=== PATIENT | female | born 1965 | race Caucasian/White ===

== ENCOUNTER 2021-02-02 11:37 | Inpatient (IN) | payer MEDICAID, OTHER ==
[~2021-02-02] VITALS: Ht 165.1 cm; Wt 47.2 kg
[2021-02-02] MEDS ORDERED: MORPHINE SULFATE 4 MG/ML CPJ (NOT FOR IM USE) IV NR ×2 (13:00→19:45)
[2021-02-02] MEDS ORDERED: SODIUM CHLORIDE 0.9% 1000ML BAG (SEPSIS BOLUS) IV ONE (13:15)
[2021-02-02] MEDS ORDERED: VANCOMYCIN 1 G PREMIX 200 ML IV ONE (13:15)
[2021-02-02] MEDS ORDERED: PIPERACILLIN/TAZ 3.375G PREMIX 50 ML IV ONE (13:15)
[2021-02-02 13:44] LABS: CHLORIDE 102 mEq/L (98-107)
[2021-02-02 13:51] LABS: HEMATOCRIT. 27.6 % (36.0-48.0); HEMOGLOBIN. 9.3 g/dL (12.0-16.0); MEAN CORPUSCULAR HEMOGLOBIN 29.5 pg (28.0-32.0); MEAN CORPUSCULAR VOLUME 87.7 fL (81.0-99.0); RED BLOOD CELL COUNT 3.15 mill/uL (4.2-5.4); RED CELL DISTRIBUTION WIDTH 15.7 % (11.6-14.6)
[2021-02-02 14:19] LABS: PLATELET ESTIMATE NORMAL
[2021-02-02] MEDS ORDERED: HYDROMORPHONE HCL/PF 2MG/ML CPJ IV ONE (15:00)
[2021-02-02] MEDS ORDERED: ONDANSETRON HCL 4MG/2ML INJ IV ONE (17:00)
[2021-02-02 17:37] LABS: CLARITY URINE CLEAR (CLEAR); COLOR URINE YELLOW (YELLOW); KETONES URINE NEGATIVE (NEGATIVE); LEUKOCYTE ESTERASE URINE NEGATIVE (NEGATIVE); NITRITE URINE POSITIVE (NEGATIVE); OCCULT BLOOD URINE 1+ (NEGATIVE); PH URINE 6.5 (4.5-8.0); PROTEIN URINE NEGATIVE (NEGATIVE); SPECIFIC GRAVITY URINE 1.041 (1.005-1.030); UROBILINOGEN URINE 0.2 E.U./dL (0.2-1.0)
[2021-02-02] MEDS ORDERED: DIPHENHYDRAMINE 50MG/ML VIAL IV SCH (20:00)
[2021-02-02 20:44] VITALS: BP 151/102
[2021-02-02 21:00] VITALS: BP 151/102
[2021-02-02] MEDS: ACETAMINOPHEN 325MG TABLET PO PRN (21:16)
[2021-02-02] MEDS: ONDANSETRON HCL 4MG/2ML INJ IV PRN (21:17)
[2021-02-02] MEDS: HYDROMORPHONE HCL/PF 2MG/ML CPJ IV PRN (21:35)
[2021-02-02] MEDS: ENOXAPARIN 30MG/0.3ML SYR SUBCUT SCH (21:59)
[2021-02-02 22:00] VITALS: BP 151/100
[2021-02-02] MEDS ORDERED: PIPERACILLIN/TAZOBACTAM 3.375 G/VIAL IV SCH (22:00)
[2021-02-02] MEDS ORDERED: IOHEXOL-350 100 ML BOTTLE ONE (22:13)
[2021-02-02] MEDS ORDERED: IOHEXOL-300 100 ML BOTTLE ONE (22:14)
[2021-02-02] MEDS ORDERED: VANCOMYCIN 1,500 MG in DEXT 5% WATER 250 ML IV NR (22:30)
[2021-02-02] MEDS: PIPERACILLIN/TAZOBACTAM 3.375G in DEXT 5% WATER 50ML IV SCH (23:17)
[2021-02-02] MEDS ORDERED: ONDA4TAB5 PO (23:52)
[2021-02-03] VITALS (14 sets, daily range): BP systolic 99–138; BP diastolic 67–89
[2021-02-03] MEDS: HYDROMORPHONE HCL/PF 2MG/ML CPJ IV PRN ×6 (01:46→22:10)
[2021-02-03] MEDS: MVI, ADULT NO.1 10 ML, FOLIC ACID 1 MG, THIAMINE HCL 100 MG in SODIUM CHLORIDE 0.9% 1,0... IV SCH (04:42)
[2021-02-03] MEDS: PIPERACILLIN/TAZOBACTAM 3.375G in DEXT 5% WATER 50ML IV SCH ×3 (05:18→19:49)
[2021-02-03] MEDS: ONDANSETRON HCL 4MG/2ML INJ IV PRN ×4 (05:57→22:09)
[2021-02-03] MEDS ORDERED: VANCOMYCIN 1 G PREMIX 200 ML IV SCH (06:30)
[2021-02-03 07:28] LABS: BASOPHILS % 0.3 % (0.0-2.0); CHLORIDE 100 mEq/L (98-107); EOSINOPHILS % 0.1 % (0.0-5.0); HEMATOCRIT. 22.7 % (36.0-48.0); HEMOGLOBIN. 7.6 g/dL (12.0-16.0); LYMPHOCYTES % 12.3 % (20.0-50.0); MEAN CORPUSCULAR HEMOGLOBIN 29.3 pg (28.0-32.0); MEAN CORPUSCULAR VOLUME 87.7 fL (81.0-99.0); MONOCYTES % 5.1 % (2.0-8.0); NEUTROPHILS % 82.2 % (40.0-76.0); PLATELET 182 x1000/uL (130-400); RED BLOOD CELL COUNT 2.59 mill/uL (4.2-5.4); RED CELL DISTRIBUTION WIDTH 15.7 % (11.6-14.6)
[2021-02-03] MEDS: ACETAMINOPHEN 325MG TABLET PO PRN ×2 (08:23→17:09)
[2021-02-03] MEDS: ENOXAPARIN 30MG/0.3ML SYR SUBCUT SCH (08:24)
[2021-02-03] MEDS: FAMOTIDINE 20MG/2ML VIAL IV SCH ×2 (08:24→17:10)
[2021-02-03] MEDS ORDERED: ENOXAPARIN 40MG/0.4ML SYR SUBCUT SCH (09:00)
[2021-02-03] MEDS: METOCLOPRAMIDE HCL 10MG/2ML VIAL IV SCH ×3 (12:55→23:57)
[2021-02-03 16:26] LABS: TOTAL IRON BINDING CAPACITY 208 ug/dL (250-450)
[2021-02-03] MEDS: GUAIFENESIN 600MG ER TABLET PO PRN (17:10)
[2021-02-03] MEDS: VANCOMYCIN 1 G PREMIX 200 ML IV SCH (20:35)
[2021-02-04] VITALS (12 sets, daily range): BP systolic 107–152; BP diastolic 46–99
[2021-02-04] MEDS: ACETAMINOPHEN 325MG TABLET PO PRN ×3 (00:03→17:20)
[2021-02-04] MEDS: HYDROMORPHONE HCL/PF 2MG/ML CPJ IV PRN ×6 (02:13→22:18)
[2021-02-04] MEDS: ONDANSETRON HCL 4MG/2ML INJ IV PRN ×4 (02:13→21:35)
[2021-02-04] MEDS: PIPERACILLIN/TAZOBACTAM 3.375G in DEXT 5% WATER 50ML IV SCH ×2 (02:24→09:34)
[2021-02-04 06:08] LABS: BASOPHILS % 1.2 % (0.0-2.0); EOSINOPHILS % 0.7 % (0.0-5.0); HEMATOCRIT. 22.6 % (36.0-48.0); HEMOGLOBIN. 7.6 g/dL (12.0-16.0); LYMPHOCYTES % 19.5 % (20.0-50.0); MEAN CORPUSCULAR HEMOGLOBIN 29.1 pg (28.0-32.0); MONOCYTES % 5.9 % (2.0-8.0); NEUTROPHILS % 72.7 % (40.0-76.0); RED BLOOD CELL COUNT 2.59 mill/uL (4.2-5.4); RED CELL DISTRIBUTION WIDTH 15.7 % (11.6-14.6)
[2021-02-04] MEDS: METOCLOPRAMIDE HCL 10MG/2ML VIAL IV SCH ×4 (06:13→23:12)
[2021-02-04 06:15] LABS: CHLORIDE 98 mEq/L (98-107)
[2021-02-04] MEDS: MVI, ADULT NO.1 10 ML, FOLIC ACID 1 MG, THIAMINE HCL 100 MG in SODIUM CHLORIDE 0.9% 1,0... IV SCH (09:34)
[2021-02-04] MEDS: FAMOTIDINE 20MG/2ML VIAL IV SCH ×2 (09:38→17:20)
[2021-02-04] MEDS: GUAIFENESIN 600MG ER TABLET PO PRN (13:31)
[2021-02-04] MEDS ORDERED: POTASSIUM CHLORIDE INJ 40 MEQ in DEXT 5% WATER 250 ML IV NR (14:00)
[2021-02-04] MEDS: VANCOMYCIN 1 G PREMIX 200 ML IV SCH (14:11)
[2021-02-04] MEDS: AMPICILLIN SOD/SULBACTAM NA 3 G in SODIUM CHLORIDE 0.9% 100 ML IV SCH ×2 (17:19→23:12)
[2021-02-04] MEDS: ZOLPIDEM TARTRATE 5MG TABLET PO PRN (20:23)
[2021-02-05] VITALS (21 sets, daily range): BP systolic 118–166; BP diastolic 34–107
[2021-02-05] MEDS: ONDANSETRON HCL 4MG/2ML INJ IV PRN ×4 (02:16→22:37)
[2021-02-05] MEDS: HYDROMORPHONE HCL/PF 2MG/ML CPJ IV PRN ×6 (02:18→22:38)
[2021-02-05] MEDS: METOCLOPRAMIDE HCL 10MG/2ML VIAL IV SCH ×3 (06:15→17:20)
[2021-02-05] MEDS: AMPICILLIN SOD/SULBACTAM NA 3 G in SODIUM CHLORIDE 0.9% 100 ML IV SCH ×3 (06:15→17:20)
[2021-02-05 06:19] LABS: BASOPHILS % 0.6 % (0.0-2.0); EOSINOPHILS % 2.2 % (0.0-5.0); HEMATOCRIT. 25.1 % (36.0-48.0); HEMOGLOBIN. 8.5 g/dL (12.0-16.0); LYMPHOCYTES % 21.9 % (20.0-50.0); MEAN PLATELET VOLUME 9.9 fl (7.4-10.4); MONOCYTES % 8.6 % (2.0-8.0); NEUTROPHILS % 66.7 % (40.0-76.0); PLATELET 188 x1000/uL (130-400); RED BLOOD CELL COUNT 2.92 mill/uL (4.2-5.4); RED CELL DISTRIBUTION WIDTH 16.2 % (11.6-14.6)
[2021-02-05 06:25] LABS: CHLORIDE 97 mEq/L (98-107)
[2021-02-05] MEDS: FAMOTIDINE 20MG/2ML VIAL IV SCH ×2 (08:35→17:20)
[2021-02-05] MEDS: ACETAMINOPHEN 325MG TABLET PO PRN ×2 (08:35→17:20)
[2021-02-05] MEDS ORDERED: HYDRALAZINE 20MG/ML VIAL IV PRN (09:30)
[2021-02-05 10:34] LABS: PROTHROMBIN TIME 11.2 sec (9.6-11.0)
[2021-02-05] MEDS ORDERED: LIDOCAINE HCL 1% 20ML VIAL (Pyxis) INJ ONE (13:04)
[2021-02-05] MEDS ORDERED: FENTANYL CITRATE/PF 50MCG/ML 2ML VIAL ONE (13:52)
[2021-02-05] MEDS ORDERED: FENTANYL CITRATE/PF 50MCG/ML 2ML VIAL IV NR (13:52)
[2021-02-05] MEDS: MVI, ADULT NO.1 10 ML, FOLIC ACID 1 MG, THIAMINE HCL 100 MG in SODIUM CHLORIDE 0.9% 1,0... IV SCH (14:32)
[2021-02-05] MEDS ORDERED: DEXTROSE 50% WATER 50ML SYRINGE IV ONE (18:20)
[2021-02-05] MEDS: ZOLPIDEM TARTRATE 5MG TABLET PO PRN (20:24)
[2021-02-06] VITALS (12 sets, daily range): BP systolic 119–160; BP diastolic 67–102
[2021-02-06] MEDS: AMPICILLIN SOD/SULBACTAM NA 3 G in SODIUM CHLORIDE 0.9% 100 ML IV SCH ×5 (00:20→23:11)
[2021-02-06] MEDS: METOCLOPRAMIDE HCL 10MG/2ML VIAL IV SCH ×5 (00:20→23:58)
[2021-02-06] MEDS: ONDANSETRON HCL 4MG/2ML INJ IV PRN ×2 (03:00→07:00)
[2021-02-06] MEDS: HYDROMORPHONE HCL/PF 2MG/ML CPJ IV PRN ×6 (03:00→23:58)
[2021-02-06] MEDS: ACETAMINOPHEN 325MG TABLET PO PRN ×3 (06:08→21:42)
[2021-02-06] MEDS: MVI, ADULT NO.1 10 ML, FOLIC ACID 1 MG, THIAMINE HCL 100 MG in SODIUM CHLORIDE 0.9% 1,0... IV SCH ×2 (10:31→11:32)
[2021-02-06] MEDS: FAMOTIDINE 20MG/2ML VIAL IV SCH ×2 (10:31→17:28)
[2021-02-06 12:09] LABS: BASOPHILS % 0.9 % (0.0-2.0); CHLORIDE 97 mEq/L (98-107); HEMATOCRIT. 23.1 % (36.0-48.0); LYMPHOCYTES % 27.2 % (20.0-50.0); MEAN CORPUSCULAR VOLUME 83.4 fL (81.0-99.0); MEAN PLATELET VOLUME 9.5 fl (7.4-10.4); MONOCYTES % 10.2 % (2.0-8.0); NEUTROPHILS % 59.7 % (40.0-76.0); PLATELET 209 x1000/uL (130-400); RED BLOOD CELL COUNT 2.77 mill/uL (4.2-5.4)
[2021-02-06] MEDS: GUAIFENESIN 600MG ER TABLET PO PRN (21:49)
[2021-02-06] MEDS: ZOLPIDEM TARTRATE 5MG TABLET PO PRN (21:54)
[2021-02-07] VITALS (11 sets, daily range): BP systolic 133–163; BP diastolic 88–107
[2021-02-07] MEDS: AMPICILLIN SOD/SULBACTAM NA 3 G in SODIUM CHLORIDE 0.9% 100 ML IV SCH ×4 (05:10→22:20)
[2021-02-07] MEDS: METOCLOPRAMIDE HCL 10MG/2ML VIAL IV SCH ×4 (05:11→23:11)
[2021-02-07] MEDS: HYDROMORPHONE HCL/PF 2MG/ML CPJ IV PRN ×5 (05:12→22:06)
[2021-02-07 07:10] LABS: HEMATOCRIT 23.5 % (36.0-48.0); HEMOGLOBIN 7.8 g/dL (12.0-16.0); MEAN CORPUSCULAR HEMOGLOBIN 28.6 pg (28.0-32.0); MEAN CORPUSCULAR VOLUME 85.9 fL (81.0-99.0); PLATELET 255 x1000/uL (130-400); RED BLOOD CELL COUNT 2.73 mill/uL (4.2-5.4); RED CELL DISTRIBUTION WIDTH 16.8 % (11.6-14.6)
[2021-02-07 07:31] LABS: CHLORIDE 102 mEq/L (98-107)
[2021-02-07 07:37] LABS: PHOSPHORUS 3.5 mg/dL (2.5-4.9)
[2021-02-07] MEDS ORDERED: POTASSIUM CHLORIDE 20MEQ TABLET SR PO SCH ×3 (08:00→14:00)
[2021-02-07] MEDS: ONDANSETRON HCL 4MG/2ML INJ IV PRN ×2 (09:18→22:06)
[2021-02-07] MEDS: FAMOTIDINE 20MG/2ML VIAL IV SCH ×2 (09:20→17:45)
[2021-02-07] MEDS: MVI, ADULT NO.1 10 ML, FOLIC ACID 1 MG, THIAMINE HCL 100 MG in SODIUM CHLORIDE 0.9% 1,0... IV SCH (09:20)
[2021-02-07 10:21] LABS: INR 1.1; PARTIAL THROMBOPLASTIN TIME 28.2 sec (23.4-31.0); PROTHROMBIN TIME 11.3 sec (9.6-11.0)
[2021-02-07] MEDS: TOTAL PARENTERAL NUTRITION 1,800 ML IV SCH (20:15)
[2021-02-07] MEDS: ZOLPIDEM TARTRATE 5MG TABLET PO PRN (23:11)
[2021-02-07] MEDS: BLOOD SUGAR DIAGNOSTIC STRIP TEST SCH (23:11)
[2021-02-08] VITALS (12 sets, daily range): BP systolic 121–147; BP diastolic 72–99
[2021-02-08] MEDS: HYDROMORPHONE HCL/PF 2MG/ML CPJ IV PRN ×6 (02:00→23:05)
[2021-02-08] MEDS: AMPICILLIN SOD/SULBACTAM NA 3 G in SODIUM CHLORIDE 0.9% 100 ML IV SCH ×4 (04:32→22:44)
[2021-02-08] MEDS: METOCLOPRAMIDE HCL 10MG/2ML VIAL IV SCH ×4 (06:13→22:44)
[2021-02-08] MEDS: BLOOD SUGAR DIAGNOSTIC STRIP TEST SCH ×4 (06:13→22:45)
[2021-02-08 07:17] LABS: BASOPHILS % 0.5 % (0.0-2.0); EOSINOPHILS % 1.9 % (0.0-5.0); HEMOGLOBIN. 7.5 g/dL (12.0-16.0); LYMPHOCYTES % 26.8 % (20.0-50.0); MEAN CORPUSCULAR VOLUME 90.1 fL (81.0-99.0); MEAN PLATELET VOLUME 9.8 fl (7.4-10.4); MONOCYTES % 8.3 % (2.0-8.0); NEUTROPHILS % 62.5 % (40.0-76.0); PLATELET 295 x1000/uL (130-400); RED BLOOD CELL COUNT 2.66 mill/uL (4.2-5.4); RED CELL DISTRIBUTION WIDTH 16.8 % (11.6-14.6)
[2021-02-08] MEDS: FAMOTIDINE 20MG/2ML VIAL IV SCH ×2 (08:56→16:58)
[2021-02-08] MEDS: ACETAMINOPHEN 325MG TABLET PO PRN ×2 (08:56→17:03)
[2021-02-08 10:46] LABS: CHLORIDE 99 mEq/L (98-107)
[2021-02-08] MEDS: GUAIFENESIN 600MG ER TABLET PO PRN (17:02)
[2021-02-08] MEDS: ZOLPIDEM TARTRATE 5MG TABLET PO PRN (20:13)
[2021-02-08] MEDS ORDERED: FAT EMULSIONS 500 ML IV SCH (21:00)
[2021-02-08] MEDS: TOTAL PARENTERAL NUTRITION 1,800 ML IV SCH (21:14)
[2021-02-09] VITALS (11 sets, daily range): BP systolic 113–158; BP diastolic 70–96
[2021-02-09] MEDS: HYDROMORPHONE HCL/PF 2MG/ML CPJ IV PRN ×3 (03:16→11:25)
[2021-02-09] MEDS: AMPICILLIN SOD/SULBACTAM NA 3 G in SODIUM CHLORIDE 0.9% 100 ML IV SCH ×4 (05:38→23:10)
[2021-02-09] MEDS: METOCLOPRAMIDE HCL 10MG/2ML VIAL IV SCH ×4 (05:38→23:10)
[2021-02-09] MEDS: BLOOD SUGAR DIAGNOSTIC STRIP TEST SCH ×3 (05:57→17:51)
[2021-02-09] MEDS: GUAIFENESIN 600MG ER TABLET PO PRN ×2 (09:20→23:10)
[2021-02-09] MEDS: ACETAMINOPHEN 325MG TABLET PO PRN (09:20)
[2021-02-09] MEDS: FAMOTIDINE 20MG/2ML VIAL IV SCH ×2 (09:21→17:30)
[2021-02-09 12:49] LABS: HEMATOCRIT 21.7 % (36.0-48.0); HEMOGLOBIN 7.4 g/dL (12.0-16.0)
[2021-02-09] MEDS: HYDROCODONE/ACETAMINOPHEN 5/325MG TABLET PO PRN ×3 (15:47→23:11)
[2021-02-09] MEDS: TOTAL PARENTERAL NUTRITION 1,800 ML IV SCH (20:20)
[2021-02-10] VITALS (7 sets, daily range): BP systolic 121–143; BP diastolic 78–102
[2021-02-10] MEDS: ONDANSETRON HCL 4MG/2ML INJ IV PRN ×3 (00:23→10:52)
[2021-02-10] MEDS: BLOOD SUGAR DIAGNOSTIC STRIP TEST SCH ×3 (00:36→12:00)
[2021-02-10] MEDS: HYDROCODONE/ACETAMINOPHEN 5/325MG TABLET PO PRN ×3 (04:11→11:49)
[2021-02-10] MEDS: AMPICILLIN SOD/SULBACTAM NA 3 G in SODIUM CHLORIDE 0.9% 100 ML IV SCH ×2 (05:10→11:49)
[2021-02-10] MEDS: METOCLOPRAMIDE HCL 10MG/2ML VIAL IV SCH ×2 (05:11→12:00)
[2021-02-10] MEDS: FAMOTIDINE 20MG/2ML VIAL IV SCH (09:34)
[2021-02-10] MEDS ORDERED: HYDR-4009 MT (12:31)
== END 2021-02-10 13:10 | disposition home or self-care (01) | DRG 720 ==
LOC: ER 12:13 → 5EST 16:59 → ENRESERV 19:13 → 5EST 21:10
PROVIDERS: ADMIT Internal Medicine; ATTEND Internal Medicine
PROC: 02HV33Z Insertion of Infusion Device into Superior Vena Cava, Percutaneous Approach (ICD-10-PCS; principal; 2021-02-05)
PROC: B518ZZA Fluoroscopy of Superior Vena Cava, Guidance (ICD-10-PCS; 2021-02-05)
PROC: B548ZZA Ultrasonography of Superior Vena Cava, Guidance (ICD-10-PCS; 2021-02-05)
PROC: 0JPT3XZ Removal of Tunneled Vascular Access Device from Trunk Subcutaneous Tissue and Fascia, Percutaneous Approach (ICD-10-PCS; 2021-02-05)
PROC: 05PYX3Z Removal of Infusion Device from Upper Vein, External Approach (ICD-10-PCS; 2021-02-05)
DX: A41.01 Sepsis due to Methicillin susceptible Staphylococcus aureus (principal); E43 Unspecified severe protein-calorie malnutrition; D64.9 Anemia, unspecified; E87.1 Hypo-osmolality and hyponatremia; N39.0 Urinary tract infection, site not specified; E66.9 Obesity, unspecified; R65.20 Severe sepsis without septic shock; R74.01 Elevation of levels of liver transaminase levels; Z20.822 Contact with and (suspected) exposure to COVID-19; R91.1 Solitary pulmonary nodule; K82.8 Other specified diseases of gallbladder; Z98.84 Bariatric surgery status; Z79.891 Long term (current) use of opiate analgesic; Z79.899 Other long term (current) drug therapy; Z68.1 Body mass index [BMI] 19.9 or less, adult; Z86.718 Personal history of other venous thrombosis and embolism
CPT/HCPCS: 36415; 36573; 36589; 71045; 74177; 80048; 80053; 80202; 81003; 82270; 82465; 82728; 82962; 83540; 83550; 83605; 83615; 83735; 84100; 84134; 84145; 84478; 84484; 85014; 85018; 85025; 85027; 86140; 87077; 87186; 87426; 93005; 93306; 93970; 99285; C1725; C1769; J0295; J0360; J1170; J1200; J1650; J2270; J2405; J2543; J2765; J3010; J3370; J3411; J3480; J3490; J7030; J7040; J7050; J7060; Q9967